=== PATIENT | female | born 1990 | race American Indian/Alaskan Native ===

== ENCOUNTER 2017-09-11 13:50 | Outpatient (CLI) | payer MEDICAID ==
[2017-09-11 16:40] VITALS: BP 117/63
--- NOTE | 2017-09-12 16:01 | Event Note ---
Date: 09/11/17 27 year old female presented to L&D triage to rule out labor at 39 weeks , 5 days gestation. Patient denies leaking of fluid or vaginal bleeding; she reports active movement. FHR tracing reactive. No cervical change. Patient was found to not be in labor. Maternal vital signs stable. Patient was discharged home with labor precautions and advice to follow up at [facility] on Wednesday.
== END 2017-09-11 17:10 | disposition home or self-care (01) ==
LOC: TRG 13:50
PROVIDERS: ATTEND Obstetrics & Gynecology
DX: O47.1 False labor at or after 37 completed weeks of gestation (principal); Z3A.39 39 weeks gestation of pregnancy
CPT/HCPCS: 59025

== ENCOUNTER 2018-12-24 10:03 | Observation (INO) | payer MEDICAID ==
[2018-12-24] MEDS ORDERED: LACTATED RINGERS 500 ML IV ONE (10:46)
[2018-12-24] MEDS ORDERED: cefTRIAXone/NS 1 GM/50 ML 1 GM/50 ML BAG IV ONE (10:47)
[2018-12-24] MEDS ORDERED: BETAMET ACET/BETAMET NA PH 6 MG/ML INJ 5 ML MDV IM ONE (10:47)
[2018-12-24] MEDS ORDERED: MAGNESIUM SULFATE 4 GM/100 ML BAG IV ONE (12:09)
[2018-12-24] MEDS ORDERED: TERBUTALINE 1 MG/1 ML INJ SUB-Q ONE (12:09)
[2018-12-24] MEDS: LACTATED RINGERS 1,000 ML IV SCH ×2 (12:32→19:21)
[2018-12-24] MEDS: MAGNESIUM SULFATE 40GM/1000ML 40 GM/1,000 ML BAG IV SCH (13:52)
[2018-12-24] MEDS ORDERED: DOCUSATE SODIUM 100 MG CAP PO PRN (14:42)
--- NOTE | 2018-12-24 14:42 | History and Physical Report ---
History of Present Illness Date of examination: 12/24/18 Date of admission: 12/24/18 12:42 Chief complaint: SIUP at 34 weeks with contractions. Previous C/section. History of present illness: Patient is a 28 year old , LMP 04/30/18, EDC 02/04/19 at 34 weeks gestation who was sent from the office for contractions. She denies any fluid leakage or bleeding. She reports good movement. Cervix is 1-2 cm/50%/-3. Past History Past Surgical History: section PIE BAKER History: herpes Family/Genetic History: none Social history: no significant social history - Obstetrical History Expected Date of Delivery: 02/04/19 Actual Gestation: 34 Week(s) 0 Day(s) : 5 Para: 4 Number of Living Children: 3 Medications and Allergies Allergies Allergy/AdvReac Type Severity Reaction Status Date / Time No Known Allergies Allergy Verified 12/24/18 10:44 Home Medications Medication Instructions Recorded Confirmed Last Taken Type Vit 75/Iron/Folic/Om3 1 tab PO DAILY 07/23/15 09/13/17 09/06/17 History [Daily Combo Pack] Active Meds: Active Medications Lactated Ringer's (Lactated Ringers) 1,000 mls @ 75 mls/hr IV DIRECT PRANEETH Last Admin: 12/24/18 12:32 Dose: 75 mls/hr Documented by: Magnesium Sulfate (Magnesium Sulfate 40gm/1000ml) 40 gm in 1,000 mls @ 50 mls/hr IV DIRECT PRANEETH Last Admin: 12/24/18 13:52 Dose: 2 gm/hr, 50 mls/hr Documented by: Magnesium Sulfate (Magnesium Sulfate 4gm/100ml) 4 gm in 100 mls @ 25 mls/hr IV ONCE ONE Stop: 12/24/18 16:08 Last Admin: 12/24/18 12:48 Dose: 200 mls/hr Documented by: - Vital Signs Vital signs: Vital Signs Pulse BP 88 104/61 12/24/18 12:33 12/24/18 12:33 Temp Pulse Resp BP Pulse Ox 98.2 F 94 H 18 123/68 12/24/18 14:17 12/24/18 14:41 12/24/18 14:17 12/24/18 14:41 - Physical Exam Cardiovascular: Normal S1, Normal S2 Lungs: Positive: Clear to auscultation Vulva: both: normal Adnexa: both: normal Deep Tendon Reflex Grade: Normal +2 - Obstetrical FHR: category 1 Uterine Contraction Monitor Mode: External Cervical Dilatation: 1 Cervical Effacement Percentage: 50 station: -3 Uterine Contraction Pattern: Irregular Uterine Contraction Intensity: Moderate Results All other labs normal. Assessment and Plan - Patient Problems (1) 34 weeks gestation of Current Visit: Yes Status: Acute (2) labor Current Visit: Yes Status: Acute (3) labor Current Visit: No Status: Acute Plan to address problem: Admit to antepartum. IV hydration. Celestone for FLM. Magnesium sulfate. IV ampicillin for GBS prophylaxis. Sonogram for EFW and BPP. MFM consult. (4) Previous section Current Visit: Yes Status: Acute (5) Sickle cell trait Current Visit: Yes Status: Acute
[2018-12-24] MEDS ORDERED: LACTATED RINGERS 1,000 ML IV SCH (15:00)
[2018-12-24 15:16] LABS: Bilirubin,Urine NEG (Negative); Blood,Urine NEG (Negative); Color,Urine Colorless (Yellow); Protein,Urine <15 mg/dL mg/dL (Negative); Urobilinogen,Urine < 2.0 mg/dL (<2.0); WBC,Urine < 1.0 /HPF (0.0-6.0)
[2018-12-24 15:34] LABS: RBC,Urine < 1.0 /HPF (0.0-6.0)
--- NOTE | 2018-12-24 16:12 | Ultrasound Report ---
ULTRASOUND BIOPHYSICAL PROFILE AND LIMITED OB ULTRASOUND INDICATION / CLINICAL INFORMATION: BPP. labor. COMPARISON: None available. FINDINGS: BREATHING MOVEMENT = 2 GROSS BODY MOVEMENT = 2 TONE = 2 QUALITATIVE AMNIOTIC FLUID VOLUME = 2 TOTAL BIOPHYSICAL SCORE = 10/06 AMNIOTIC FLUID INDEX (cm) = 11.2 PRESENTATION: Cephalic. HEART RATE (beats per minute): 172 There is a single intrauterine with an estimated sonographic gestational age of 34 weeks an d an EDC of 02/04/2019. There is good correlation with clinical dates. The placenta is located posteri maryjane, is grade 1 and is free of the os. There is no evidence of abruption or other significant abnorm ality.. IMPRESSION: biophysical profile = 10/06 Signer Name: Musa Dsouza MD Signed: 12/24/2018 4:07 PM Workstation Name: [id number]
[2018-12-24] MEDS: ACETAMINOPHEN 325 MG TAB PO PRN ×2 (16:23→20:13)
[2018-12-24] MEDS: AMPICILLIN/NS 1 GM/50 ML 1 GM/50 ML BAG IV SCH ×2 (20:00→22:00)
[2018-12-24] MEDS ORDERED: ZOLPIDEM 5 MG TAB PO PRN (22:47)
[2018-12-25] MEDS: ACETAMINOPHEN 325 MG TAB PO PRN (02:35)
[2018-12-25] MEDS: AMPICILLIN/NS 1 GM/50 ML 1 GM/50 ML BAG IV SCH ×2 (02:36→06:30)
[2018-12-25] MEDS: LACTATED RINGERS 1,000 ML IV SCH (07:24)
[2018-12-25] MEDS ORDERED: PRENATAL VIT27-FE FUMARATE-FOLIC ACID VIT TAB PO SCH (10:00)
[2018-12-25] MEDS: MAGNESIUM SULFATE 40GM/1000ML 40 GM/1,000 ML BAG IV SCH (10:14)
[2018-12-25] MEDS ORDERED: BETAMET ACET/BETAMET NA PH 6 MG/ML INJ 5 ML MDV IM ONE (10:45)
[2018-12-25 14:43] VITALS: BP 123/64
--- NOTE | 2018-12-25 15:48 | Progress Note ---
Assessment and Plan - Patient Problems (1) 34 weeks gestation of Current Visit: Yes Status: Acute (2) labor Current Visit: No Status: Acute Plan to address problem: Celestone for FLM completed. Magnesium sulfate discontinued. IV ampicillin for GBS prophylaxis. Sonogram done. Patient desires to go home. Will doischarge home with labr precautions. She will follow up in the office this week. (3) Previous section Current Visit: Yes Status: Acute (4) Sickle cell trait Current Visit: Yes Status: Acute Subjective - Subjective Date of service: 12/25/18 Principal diagnosis: SIUP at 34 weeks with pretrm labor Interval history: Patient is a 28 year old , LMP 04/30/18, EDC 02/04/19 at 34 weeks and 1 day gestation who was admitted yesterday for for contractions. She was 1 cm dilated on admission. She as treated with magnesium sulfate, celestone fot FLM, IV ampicillin. Her contractions stopped. She did not make any further cervical changes. This AM, she denies any complaint. Objective - Vital Signs Vital Signs: Vital Signs - 12hr 12/25/18 12/25/18 12/25/18 03:45 03:50 03:55 Temperature Pulse Rate 95 H 89 89 Respiratory Rate Blood Pressure Blood Pressure [Left] O2 Sat by Pulse 97 96 96 Oximetry 12/25/18 12/25/18 12/25/18 04:00 04:05 04:10 Temperature 98 F Pulse Rate 91 H 90 90 Respiratory 18 Rate Blood Pressure Blood Pressure 129/63 [Left] O2 Sat by Pulse 98 97 96 Oximetry 12/25/18 12/25/18 12/25/18 04:11 04:15 04:20 Temperature Pulse Rate 88 91 H 108 H Respiratory Rate Blood Pressure 119/54 Blood Pressure [Left] O2 Sat by Pulse 97 96 Oximetry 12/25/18 12/25/18 12/25/18 04:24 04:25 04:29 Temperature Pulse Rate 104 H 92 H 88 Respiratory Rate Blood Pressure Blood Pressure [Left] O2 Sat by Pulse 93 94 94 Oximetry 12/25/18 12/25/18 12/25/18 04:30 04:35 04:37 Temperature Pulse Rate 91 H 89 89 Respiratory Rate Blood Pressure Blood Pressure [Left] O2 Sat by Pulse 92 96 94 Oximetry 10/12/25/18 12/25/18 04:41 05:13 05:25 Temperature Pulse Rate 91 H 93 H 89 Respiratory Rate Blood Pressure 129/63 132/58 Blood Pressure [Left] O2 Sat by Pulse 97 Oximetry 12/25/18 12/25/18 12/25/18 05:30 05:35 05:40 Temperature Pulse Rate 93 H 90 94 H Respiratory Rate Blood Pressure Blood Pressure [Left] O2 Sat by Pulse 95 96 96 Oximetry 12/25/18 12/25/18 12/25/18 05:45 05:50 05:55 Temperature Pulse Rate 89 96 H 94 H Respiratory Rate Blood Pressure Blood Pressure [Left] O2 Sat by Pulse 96 96 94 Oximetry 12/25/18 12/25/18 12/25/18 06:00 06:01 06:05 Temperature Pulse Rate 95 H 91 H 94 H Respiratory Rate Blood Pressure Blood Pressure [Left] O2 Sat by Pulse 94 94 93 Oximetry 12/25/18 12/25/18 12/25/18 06:08 06:10 06:14 Temperature Pulse Rate 99 H 95 H 91 H Respiratory Rate Blood Pressure Blood Pressure [Left] O2 Sat by Pulse 94 94 94 Oximetry 12/25/18 12/25/18 12/25/18 06:15 06:20 06:25 Temperature Pulse Rate 94 H 107 H 90 Respiratory Rate Blood Pressure Blood Pressure [Left] O2 Sat by Pulse 93 95 97 Oximetry 12/25/18 12/25/18 12/25/18 06:30 06:35 06:40 Temperature Pulse Rate 97 H 87 88 Respiratory Rate Blood Pressure Blood Pressure [Left] O2 Sat by Pulse 96 94 95 Oximetry 12/25/18 12/25/18 12/25/18 06:43 06:45 06:50 Temperature Pulse Rate 92 H 85 87 Respiratory Rate Blood Pressure Blood Pressure [Left] O2 Sat by Pulse 94 95 95 Oximetry 12/25/18 12/25/18 12/25/18 06:55 07:00 07:05 Temperature Pulse Rate 86 87 88 Respiratory Rate Blood Pressure Blood Pressure [Left] O2 Sat by Pulse 95 95 95 Oximetry 12/25/18 12/25/18 12/25/18 07:10 07:11 07:15 Temperature Pulse Rate 90 87 86 Respiratory Rate Blood Pressure Blood Pressure [Left] O2 Sat by Pulse 95 94 95 Oximetry 10/12/25/18 12/25/18 07:18 07:20 07:25 Temperature Pulse Rate 87 89 83 Respiratory Rate Blood Pressure Blood Pressure [Left] O2 Sat by Pulse 94 96 96 Oximetry 12/25/18 12/25/18 12/25/18 07:30 07:35 07:40 Temperature Pulse Rate 85 87 90 Respiratory Rate Blood Pressure Blood Pressure [Left] O2 Sat by Pulse 96 97 96 Oximetry 12/25/18 12/25/18 12/25/18 07:45 07:50 07:55 Temperature Pulse Rate 86 83 90 Respiratory Rate Blood Pressure Blood Pressure [Left] O2 Sat by Pulse 96 97 96 Oximetry 12/25/18 12/25/18 12/25/18 08:00 08:05 08:10 Temperature Pulse Rate 86 80 82 Respiratory Rate Blood Pressure Blood Pressure [Left] O2 Sat by Pulse 96 99 99 Oximetry 12/25/18 12/25/18 12/25/18 08:15 08:20 08:25 Temperature Pulse Rate 82 83 83 Respiratory Rate Blood Pressure Blood Pressure [Left] O2 Sat by Pulse 97 97 98 Oximetry 12/25/18 12/25/18 12/25/18 08:30 08:35 08:40 Temperature Pulse Rate 85 84 93 H Respiratory Rate Blood Pressure Blood Pressure [Left] O2 Sat by Pulse 97 97 98 Oximetry 12/25/18 12/25/18 12/25/18 08:43 08:45 08:50 Temperature Pulse Rate 100 H 94 H 86 Respiratory Rate Blood Pressure Blood Pressure [Left] O2 Sat by Pulse 93 97 98 Oximetry 12/25/18 12/25/18 12/25/18 08:55 09:00 09:05 Temperature Pulse Rate 84 90 87 Respiratory Rate Blood Pressure Blood Pressure [Left] O2 Sat by Pulse 98 96 97 Oximetry 12/25/18 12/25/18 12/25/18 09:10 09:15 09:20 Temperature Pulse Rate 87 85 87 Respiratory Rate Blood Pressure Blood Pressure [Left] O2 Sat by Pulse 97 97 97 Oximetry 12/25/18 12/25/18 12/25/18 09:25 09:30 09:35 Temperature Pulse Rate 84 84 85 Respiratory Rate Blood Pressure Blood Pressure [Left] O2 Sat by Pulse 96 97 96 Oximetry 12/25/18 12/25/18 12/25/18 09:40 09:41 10:14 Temperature Pulse Rate 85 67 86 Respiratory Rate Blood Pressure 101/57 Blood Pressure [Left] O2 Sat by Pulse 97 76 L 99 Oximetry 12/25/18 12/25/18 12/25/18 10:19 10:25 10:30 Temperature Pulse Rate 94 H 92 H 94 H Respiratory Rate Blood Pressure Blood Pressure [Left] O2 Sat by Pulse 98 100 100 Oximetry 12/25/18 12/25/18 12/25/18 10:31 10:32 10:35 Temperature 97.6 F Pulse Rate 91 H 97 H Respiratory Rate Blood Pressure Blood Pressure [Left] O2 Sat by Pulse 92 98 Oximetry 12/25/18 12/25/18 12/25/18 10:40 10:42 10:45 Temperature Pulse Rate 89 92 H 89 Respiratory Rate Blood Pressure 111/71 Blood Pressure [Left] O2 Sat by Pulse 98 97 Oximetry 12/25/18 12/25/18 12/25/18 10:50 10:55 11:00 Temperature Pulse Rate 100 H 92 H 90 Respiratory Rate Blood Pressure Blood Pressure [Left] O2 Sat by Pulse 97 98 97 Oximetry 12/25/18 12/25/18 12/25/18 11:42 12:42 13:42 Temperature Pulse Rate 91 H 94 H 96 H Respiratory Rate Blood Pressure 125/68 121/58 130/68 Blood Pressure [Left] O2 Sat by Pulse Oximetry 12/25/18 14:42 Temperature Pulse Rate 93 H Respiratory Rate Blood Pressure 123/64 Blood Pressure [Left] O2 Sat by Pulse Oximetry - Exam Cardiovascular: Normal S1, Normal S2 Lungs: Clear to auscultation Vulva: both: normal FHR: category 1 Uterine Contraction Monitor Mode: External Cervical Dilatation: 1 Cervical Effacement Percentage: 50 station: -3 Uterine Contraction Pattern: Absent Deep Tendon Reflex Grade: Normal +2 - Labs Labs: Abnormal Labs 12/24/18 12/24/18 12/25/18 15:00 19:01 00:28 Magnesium 3.70 H 5.00 H Urine pH 8.0 H 12/25/18 12/25/18 05:22 11:40 Magnesium 5.20 H 5.50 H Urine pH Laboratory Results - last 24 hr 12/24/18 12/24/18 12/25/18 10:46 19:01 00:28 Magnesium 3.70 H 5.00 H Blood Type O POSITIVE Antibody Screen Negative 12/25/18 12/25/18 05:22 11:40 Magnesium 5.20 H 5.50 H Blood Type Antibody Screen - Results US- obstetric: report reviewed
--- NOTE | 2018-12-25 15:50 | Discharge Summary ---
Providers - Providers Date of Admission: 12/24/18 12:42 Date of discharge: 12/25/18 Attending physician: JUAN A SWEET MD Primary care physician: EXCELSIOR PICKER Hospitalization Reason for admission: labor, other Procedure: other (IV fluid, magnesium sulfate, IV ampicillin, celestone for FLM.) Hospital course: Patient is a 28 year old , LMP 04/30/18, EDC 02/04/19 at 34 weeks and 1 day gestation who was admitted yesterday for for contractions. She was 1 cm dilated on admission. She as treated with magnesium sulfate, celestone fot FLM, IV ampicillin. Her contractions stopped. She did not make any further cervical changes. This AM, she denies any complaint. Condition at discharge: Stable Disposition: DC-01 TO HOME OR SELFCARE - Discharge Diagnoses (1) 34 weeks gestation of Status: Acute (2) labor Status: Acute (3) Previous section Status: Acute (4) Sickle cell trait Status: Acute Plan - Provider Discharge Summary Activity: routine Diet: routine Instructions: routine Additional instructions: [] Smoking cessation referral if applicable(refer to patient education folder for contact #) [] Refer to [facility]'s [facility] Booklet Call your doctor immediately for: * Fever > 100.5 * Heavy vaginal bleeding ( >1 pad per hour) * Severe persistent headache * Shortness of breath * Reddened, hot, painful area to leg or breast * Drainage or odor from incision. * Keep incision clean and dry at all times and follow doctor's instructions regarding bathing/showering - Follow up plan Follow up: PRIMARY CARE, [Primary Care Provider] - 7 Days
== END 2018-12-25 16:58 | disposition home or self-care (01) ==
LOC: TRG 10:03 → LD 12:42 → INTOOBSV 12:42
PROVIDERS: ADMIT Obstetrics & Gynecology; ATTEND Obstetrics & Gynecology
DX: O62.9 Abnormality of forces of labor, unspecified (principal); D57.3 Sickle-cell trait; Z3A.34 34 weeks gestation of pregnancy; Z98.891 History of uterine scar from previous surgery
CPT/HCPCS: 36415; 76816; 76819; 81001; 82731; 83735; 86850; 86900; 86901; 87086; 96365; 96366; 96367; 96368; 96372; G0378; J0290; J0696; J0702; J3105; J3475; J7120

== ENCOUNTER 2019-02-01 07:30 | Inpatient (IN) | payer MEDICAID ==
[2019-02-03] MEDS ORDERED: FAMOTIDINE 20 MG/2 ML INJ IV ONE (05:40)
[2019-02-03] MEDS ORDERED: BICITRA ORAL LIQD 30ML PO ONE (05:40)
[2019-02-03] MEDS ORDERED: METOCLOPRAMIDE 10 MG/2 ML INJ IV ONE (05:40)
[2019-02-03] MEDS ORDERED: OXYTOCIN 20 UNIT/1000ML DRIP 20 UNITS/1,000 ML BAG IV SCH ×2 (06:00→11:00)
[2019-02-03] MEDS ORDERED: LACTATED RINGERS 1,000 ML IV SCH (06:00)
[2019-02-03] MEDS ORDERED: ceFAZolin/Water 2 GM/20 ML 2 GM/20 ML SYRINGE IV NR (06:00)
[2019-02-03 07:05] LABS: Basophils % (Auto) 0.3 % (0.0-1.8); Eosinophils # (Auto) 0.1 K/mm3 (0.0-0.4); Eosinophils % (Auto) 0.5 % (0.0-4.3); Hematocrit 30.7 % (30.3-42.9); Hemoglobin 10.3 gm/dl (10.1-14.3); Lymphocytes # (Auto) 2.8 K/mm3 (1.2-5.4); Mean Corpuscular HGB Conc 34 % (30-34); Mean Corpuscular Volume 83 fl (79-97); Monocytes # (Auto) 0.7 K/mm3 (0.0-0.8); Monocytes % (Auto) 6.4 % (0.0-7.3); Platelet Count 205 K/mm3 (140-440); Red Blood Count 3.71 M/mm3 (3.65-5.03); Red Cell Distribution Width 15.4 % (13.2-15.2)
[2019-02-03] MEDS ORDERED: DEXMEDETOMIDINE 200 MCG/2 ML VIAL IV ONE (07:05)
[2019-02-03] MEDS ORDERED: HYDROmorphone 1 MG/1 ML INJ IV PRN ×2 (07:12)
[2019-02-03] MEDS ORDERED: ONDANSETRON 4 MG/2 ML INJ IV PRN ×2 (07:12→10:05)
--- NOTE | 2019-02-03 07:17 | Anesthesia Consultation ---
Anesthesia Consult and Med Hx Date of service: 02/03/19 - Airway Anesthetic Teeth Evaluation: Poor ROM Head & Neck: Adequate Mental/Hyoid Distance: Adequate Mallampati Class: Class III Intubation Access Assessment: Probably Good - Pulmonary Exam CTA: Yes - Pre-Operative Health Status Proposed Anesthetic Plan: Epidural, Spinal - Pre-Anesthesia Comment Pre-Anesthesia Comments: PMH: APPY, NO ANESTHESIA COMPLICATIONS - Pulmonary Hx Smoking: No Hx Asthma: No Hx Respiratory Symptoms: No SOB: No COPD: No Home Oxygen Therapy: No Hx Pneumonia: No Hx Sleep Apnea: No - Cardiovascular System Hx Hypertension: No Hx Coronary Artery Disease: No Hx Heart Attack/AMI: No Hx Angina: No Hx Percutaneous Transluminal Coronary Angioplasty (PTCA): No Hx Cardia Arrhythmia: No Hx Pacemaker: No Hx Internal Defibrillator: No Hx Valvular Heart Disease: No Hx Heart Murmur: No Hx Peripheral Vascular Disease: No - Central Nervous System Hx Neuromuscular Disorder: No Hx Seizures: No CVA: No Hx Back Pain: Yes (WITH OCCATIONAL NUMBNESS RIGHT LEG) Hx Psychiatric Problems: No - Gastrointestinal Hx Ulcer: No Hx Gastroesophageal Reflux Disease: No - Endocrine Hx Renal Disease: No Hx End Stage Renal Disease: No Hx Cirrhosis: No Hx Liver Disease: No Hx Insulin Dependent Diabetes: No Hx Non-Insulin Dependent Diabetes: No Hx Thyroid Disease: No Hx Hypothyroidism: No Hx Hyperthyroidism: No - Hematic Hx Anemia: No Hx Sickle Cell Disease: No (sickle cell trait) - Other Systems Hx Alcohol Use: No Hx Substance Use: No Hx Cancer: No Hx Obesity: Yes (BMI 30.3)
--- NOTE | 2019-02-03 07:18 | Anesthesia Day of Surgery ---
Anesthesia Day of Surgery - Day of Surgery Patient Examined: Yes Patient H&P Reviewed: Yes Patient is NPO: Yes Beta Blockers: No Cardiac Clearance: No Pulmonary Clearance: No Jermoy's Test: N/A
--- NOTE | 2019-02-03 07:46 | History and Physical Report ---
History of Present Illness Date of examination: 02/03/19 Date of admission: 02/03/19 05:27 History of present illness: Pt is here at 39.6 weeks for reschedule RLTCS/BTL. BTL papers signed in oct. H/o C/S x 2. Other than being a late entry to , uncomplicated preg. Past History Past Medical History: other (SCT, herpes) Past Surgical History: section (x 2) Social history: no significant social history - Obstetrical History Expected Date of Delivery: 02/04/19 Actual Gestation: 39 Week(s) 6 Day(s) : 5 Para: 4 Hx # Term Pregnancies: 3 Number of Pregnancies: 1 Medications and Allergies Allergies Allergy/AdvReac Type Severity Reaction Status Date / Time No Known Allergies Allergy Verified 12/24/18 10:44 Home Medications Medication Instructions Recorded Confirmed Last Taken Type Vit 75/Iron/Folic/Om3 1 tab PO DAILY 07/23/15 02/03/19 1 Day Ago History [Daily Combo Pack] ~02/02/19 Active Meds: Active Medications Hydromorphone HCl (Dilaudid) 0.5 mg IV Q5M PRN PRN Reason: BREAK Stop: 02/03/19 22:00 Hydromorphone HCl (Dilaudid) 0.5 mg IV Q4H PRN PRN Reason: breakthrough pain > 7/10 Oxytocin/Sodium Chloride (Pitocin/Ns 20 Unit/1000ml Drip) 20 units in 1,000 mls @ 0 mls/hr IV TITR PRANEETH Lactated Ringer's (Lactated Ringers) 1,000 mls @ 2,250 mls/hr IV PREOP PRANEETH Stop: 02/04/19 06:27 Last Admin: 02/03/19 07:11 Dose: 2,250 mls/hr Documented by: Ondansetron HCl (Zofran) 4 mg IV Q8H PRN PRN Reason: Nausea And Vomiting Sodium Chloride (Sodium Chloride Flush Syringe 10 Ml) 10 ml IV PRN NR Stop: 02/13/19 07:59 Review of Systems All systems: negative (except HPI) - Vital Signs Vital signs: Vital Signs Temp Pulse Resp BP 98.4 F 82 18 127/70 02/03/19 06:18 02/03/19 06:18 02/03/19 06:18 02/03/19 06:18 Temp Pulse Resp BP Pulse Ox 98.4 F 82 18 127/70 02/03/19 06:18 02/03/19 06:18 02/03/19 06:18 02/03/19 06:18 - Physical Exam Abdomen: Positive: normal appearance, soft. Negative: tenderness Results Result Diagrams: 02/03/19 05:57 Abnormal lab results 02/03/19 Range/Units 05:57 WBC 11.5 H (4.5-11.0) K/mm3 RDW 15.4 H (13.2-15.2) % Seg Neutrophils # 7.9 H (1.8-7.7) K/mm3 All other labs normal. Assessment and Plan - Patient Problems (1) Previous section Current Visit: No Status: Acute Plan to address problem: PT for RLTCS/BTL. PT fully consented. Risks, benefits and alternatives d/w pt. All questions answered. PT aware of @ 04/999 risk of failure.
[2019-02-03] MEDS ORDERED: PHENYLEPHRINE 10 MG/1 ML INJ SDV ONE (08:18)
[2019-02-03] MEDS ORDERED: SODIUM CHLORIDE 0.9% IRR 1,500 ML BOTTLE IR ONE (08:30)
[2019-02-03] MEDS ORDERED: WATER FOR IRRIG STERILE 1,500 ML BOTTLE IR ONE (08:30)
[2019-02-03] MEDS ORDERED: OXYTOCIN 10 UNIT/1 ML INJ ONE (08:39)
[2019-02-03] MEDS ORDERED: LIDOCAINE MPF (2%) 20 MG/1 ML VIAL 5 ML ONE ×2 (09:32→09:57)
[2019-02-03] MEDS ORDERED: WITCH HAZEL/ GLYCERIN PAD TP PRN (10:05)
[2019-02-03] MEDS ORDERED: NALOXONE 0.4 MG/1 ML INJ IV PRN ×2 (10:05→10:12)
[2019-02-03] MEDS ORDERED: HYDROCORTISONE 25 MG RECTAL SUPP PR PRN (10:05)
[2019-02-03] MEDS ORDERED: LANOLIN/ZINC/DIMETHICONE (LANSINOH) 7 GM TP PRN (10:05)
[2019-02-03] MEDS ORDERED: SENNOSIDES 8.6 MG TAB PO PRN (10:05)
[2019-02-03] MEDS ORDERED: MAGNESIUM HYDROXIDE (MOM) ORAL LIQD UDC PO PRN (10:05)
--- NOTE | 2019-02-03 10:07 | Post Anesthesia Evaluation ---
- Post Anesthesia Evaluation Patient Participated: Yes Airway Patent: Yes Stable Respiratory Function: Yes Nausea/Vomiting: No Temp > 96.8F: Yes Pain Manageable: Yes Adequeate Hydration: Yes Anesthesia Complications: No Block Receding Appropriately: Yes Patient on Ventilator: No
[2019-02-03] MEDS ORDERED: diphenhydrAMINE 50 MG/ML VIAL IV PRN (10:12)
--- NOTE | 2019-02-03 10:30 | Procedure Note ---
OB Delivery Note - Section Preop diagnosis: repeat , desires sterilization Postop diagnosis: same section procedure: repeat low transverse, bilateral tubal ligation Disposition: PACU Complications: other (uterine oozing and hematoma- was stabilized) Narrative: This patient is a 28-year-old G5 P 3013 at 39 and 67 weeks today with a history of 2 prior C-sections. Patient is here today for repeat low-transverse C- section as well as bilateral tubal ligation. Procedure patient was taken the operating room and prepped and draped in the usual fashion. A Pfannenstiel skin incision was then made over her prior incision. Incision carried down to the underlying fascia. Fascia was incised and the incision was extended bilaterally. The rectus muscle was then dissected off the fascia. The peritoneum was then carefully entered and then incision was extended superiorly and inferiorly with good visualization of the bladder. Bladder blade was then placed. The uterine incision was then made and extended bilaterally. Clear fluid was noted and the baby was delivered in the usual vertex fashion without any difficulties. Baby was right occiput transverse. Cord was clamped and cut and handed off to the awaiting team. The uterus was then exteriorized and cleared of all clots and debris. The uterine incision was closed with 0 Vicryl in a running locked fashion followed by second imbricating layer of 0 Vicryl. The patient developed a uterine hematoma on the right side of the incision which did require multiple [id number] stitches but the bleeding was eventually stabilized and controlled. This left approximately a 7 cm hematoma on that right side of the incision. But no active bleeding was noted and the hematoma did not change in size. This hematoma was observed for approximately 20-30 minutes with no change in size and no active bleeding. During that observation time attention was turned to the bilateral tubes which were ligated first in the usual fashion. But the mesentery tore a little on each side and so each segment had to be tied individually with 0 chromic to control the oozing and to ligate each side separately. Good hemostasis noted on both sides after this. The segments of both tubes were sent to pathology. Attention was then turned to a small serosal tear near the anterior uterine fundus which was about 2 cm in length. There oozing from this as well which required multiple 2-0 Vicryl sutures but eventually good hemostasis noted. Hemablast powder was applied to the uterine incision, to the serosal tear and to the areas of dissection at the bilateral tubes. Good hemostasis was noted throughout and so the uterus tubes and ovaries were returned the abdominal cavity. The ovaries were within normal limits. The sites of the tubal ligations and the serosal tear were reevaluated once the uterus was back in the abdominal cavity and good hemostasis was still noted. Pelvis was well irrigated. Good hemostasis noted at the uterine incision and again the hematoma was still stable. Interceed was placed over the uterine incision and over the lower uterine segment in the midline. Attention was now t urned to the rectus fascia which was reapproximated with 0 Vicryl in a running fashion. Good hemostasis noted the subcutaneous tissue. The subcutaneous tissues tissue was thin so it was not reapproximated. Attention was then turned to the skin which is reapproximated with 4-0 Vicryl in a subcuticular fashion followed by Dermabond. Patient had clear urine throughout the case. Mother and baby are stable. Mother taken to recovery room in stable condition. Findings - Patient had a viable female with Apgars of 9 and 9. Estimated blood loss 1000 mL
[2019-02-03] MEDS ORDERED: MORPHINE/NS 30 MG-30 ML PCA INJ IV SCH (11:00)
[2019-02-03 23:14] LABS: Hematocrit 27.9 % (30.3-42.9); Hemoglobin 9.6 gm/dl (10.1-14.3)
[2019-02-04] MEDS ORDERED: IBUPROFEN 800 MG TAB PO PRN ×2 (02:50→10:05)
[2019-02-04] MEDS: HYDROcodone/ACETAMINOPHEN 5-325 MG TAB PO PRN ×4 (03:10→22:07)
[2019-02-04 07:01] LABS: Hematocrit 28.9 % (30.3-42.9); Hemoglobin 9.5 gm/dl (10.1-14.3); Mean Corpuscular HGB Conc 33 % (30-34); Mean Corpuscular Volume 84 fl (79-97); Platelet Count 230 K/mm3 (140-440); Red Blood Count 3.44 M/mm3 (3.65-5.03); Red Cell Distribution Width 15.4 % (13.2-15.2)
--- NOTE | 2019-02-04 07:16 | Progress Note ---
Assessment and Plan - Patient Problems (1) Previous section Current Visit: No Status: Acute (2) delivery delivered Current Visit: Yes Status: Acute Plan to address problem: stable POD 1. Cont pp care. Subjective - Subjective Date of service: 02/04/19 Principal diagnosis: POD 1 Interval history: Pt is here at 39.6 weeks for reschedule RLTCS/BTL. BTL papers signed in oct. H/o C/S x 2. Other than being a late entry to , uncomplicated preg. Patient reports: new complaints (Pt doing well. Positive OOB amb, postive clears, no flatus. No F/C/N/V/CP/SOB.) Objective - Vital Signs Vital Signs: Vital Signs - 12hr 02/03/19 02/03/19 02/03/19 19:30 20:16 21:00 Temperature 94.7 F L Pulse Rate 191 H 80 Respiratory 20 20 Rate Blood Pressure 107/50 O2 Sat by Pulse 100 Oximetry 02/03/19 02/03/19 02/04/19 21:30 22:45 00:02 Temperature 98.7 F Pulse Rate 89 Respiratory 20 20 18 Rate Blood Pressure 135/78 O2 Sat by Pulse 98 Oximetry 02/04/19 02/04/19 02/04/19 01:24 01:25 03:10 Temperature Pulse Rate Respiratory 20 18 18 Rate Blood Pressure O2 Sat by Pulse Oximetry 02/04/19 03:57 Temperature 98.6 F Pulse Rate 91 H Respiratory 16 Rate Blood Pressure 118/78 O2 Sat by Pulse 99 Oximetry - Exam Abdomen: Present: normal appearance, soft (appriately tender. Wound dressing C/D/I) - Labs Labs: Abnormal Labs 02/03/19 02/03/19 02/04/19 05:57 22:40 05:57 WBC 11.5 H 14.7 H RBC 3.44 L Hgb 9.6 L 9.5 L Hct 27.9 L 28.9 L RDW 15.4 H 15.4 H Seg Neutrophils # 7.9 H Laboratory Results - last 24 hr 02/03/19 02/03/19 02/04/19 05:57 22:40 05:57 WBC 14.7 H RBC 3.44 L Hgb 9.6 L 9.5 L Hct 27.9 L 28.9 L MCV 84 MCH 28 MCHC 33 RDW 15.4 H Plt Count 230 Blood Type O POSITIVE Antibody Screen Negative
[2019-02-04] MEDS ORDERED: HYDROcodone/ACETAMINOPHEN 5-325 MG TAB PO PRN (10:15)
[2019-02-04] MEDS: SIMETHICONE 80 MG CHEW TAB PO PRN ×2 (15:29→22:08)
[2019-02-05] MEDS: HYDROcodone/ACETAMINOPHEN 5-325 MG TAB PO PRN ×3 (06:11→19:08)
--- NOTE | 2019-02-05 11:57 | Progress Note ---
Assessment and Plan A: Postop day 2 S/P LTCS. Anemia. P: Encouraged patient to ambulate and drink warm liquids. Stool softener ordered. Iron supplementation. Subjective - Subjective Date of service: 02/05/19 Principal diagnosis: POD 2 Interval history: Postop day 2. Doing well. Patient reports a small amount of lochia. Patient states she has not passed gas yet. Drinking warm liquids to try to pass gas. States she plans to ambulate more today. Patient is ambulating well and voiding without difficulty. Patient denies headache, dizziness, cough, shortness of breath, chest pain, leg pain, abdominal pain, or heavy bleeding. Patient reports: appetite normal, voiding normally, pain well controlled, ambulating normally, no dizzy ambulation, no flatus, no nauseated [place]: doing well, bottle feeding Objective - Vital Signs Latest vital signs: Vital Signs Temp Pulse Resp BP BP Pulse Ox 02/05/19 08:30 97.8 F 77 18 119/74 02/05/19 00:00 98.7 F 69 18 112/68 02/04/19 16:01 98.3 F 80 20 122/72 97 02/04/19 15:20 20 Intake and Output 02/04/19 02/05/19 02/05/19 23:59 07:59 15:59 Intake Total 540 120 Balance 540 120 Intake: Oral 240 120 Intake, Free Water 300 Other: Total, Intake Amount 240 120 # Voids Void 1 1 1 - Exam Cardiovascular: Present: Regular rate, Normal S1, Normal S2, No murmurs Lungs: Present: Clear to auscultation Abdomen: Present: normal appearance, soft, normal bowel sounds. Absent: distention, tenderness, guarding, rigidity Uterus: Present: normal, firm, fundal height below umbilicus. Absent: bogginess, tenderness Extremities: Present: normal. Absent: tenderness, edema Incision: Present: normal, dry, intact
[2019-02-05] MEDS: FERROUS SULFATE 325 MG TAB PO SCH (13:13)
[2019-02-05] MEDS: DOCUSATE SODIUM 100 MG CAP PO SCH (13:14)
[2019-02-06] MEDS: DOCUSATE SODIUM 100 MG CAP PO SCH ×2 (01:56→08:35)
[2019-02-06] MEDS: HYDROcodone/ACETAMINOPHEN 5-325 MG TAB PO PRN ×2 (01:57→08:34)
[2019-02-06] MEDS ORDERED: TETANUS,DIPH,PERTUSS(ACELL) VACCINE 0.5 ML SYRINGE IM ONE (06:00)
[2019-02-06] MEDS: FERROUS SULFATE 325 MG TAB PO SCH (08:33)
--- NOTE | 2019-02-06 09:37 | Discharge Summary ---
Providers - Providers Date of Admission: 02/03/19 05:27 Date of discharge: 02/06/19 Attending physician: MARCELO GALO MD Primary care physician: MARCELO GALO MD Hospitalization Reason for admission: IUP at term Delivery: Procedure: bilateral tubal ligation, repeat low transverse Episiotomy: none Laceration: none Incision: dry, intact (steri-strips with no drainage or bleeding noted) Other procedures: tubal ligation complications: none Discharge diagnosis: other (S/P repeat C/S with BTL; Anemia) [place] baby: male Hospital course: See admission H & P; OB operative report and PP progress notes Condition at discharge: Stable Disposition: DC-01 TO HOME OR SELFCARE - Discharge Diagnoses (1) S/P repeat low transverse Status: Acute (2) Anemia Status: Acute Qualifiers: Anemia type: iron deficiency (3) tubal ligation planned Status: Acute Plan - Discharge Medications Prescriptions: Ferrous Sulfate [Feosol 325 MG tab] 325 mg PO QDAY 30 Days #30 tablet - Provider Discharge Summary Activity: routine, no sex for 6 weeks, no heavy lifting 4 weeks, no strenuous exercise Diet: other (Iron rich diet) Instructions: routine Additional instructions: [] Smoking cessation referral if applicable(refer to patient education folder for contact #) [] Refer to [facility] Booklet Call your doctor immediately for: * Fever > 100.5 * Heavy vaginal bleeding ( >1 pad per hour) * Severe persistent headache * Shortness of breath * Reddened, hot, painful area to leg or breast * Drainage or odor from incision. * Keep incision clean and dry at all times and follow doctor's instructions regarding bathing/showering * Continue daily oral supplementation as directed with OJ - Follow up plan Follow up: MARCELO GALO MD [Primary Care Provider] - 7 Days
[2019-02-06 12:21] VITALS: BP 113/65
== END 2019-02-06 14:00 | disposition home or self-care (01) | DRG 765 ==
LOC: APU 02-03 05:27 → OB 02-03 12:36
PROVIDERS: ADMIT Obstetrics & Gynecology; ATTEND Obstetrics & Gynecology
PROC: 10D00Z1 Extraction of Products of Conception, Low, Open Approach (ICD-10-PCS; 2019-02-03)
PROC: 0UQ90ZZ Repair Uterus, Open Approach (ICD-10-PCS; 2019-02-03)
PROC: 0UL70ZZ Occlusion of Bilateral Fallopian Tubes, Open Approach (ICD-10-PCS; 2019-02-03)
PROC: 3E0234Z Introduction of Serum, Toxoid and Vaccine into Muscle, Percutaneous Approach (ICD-10-PCS; principal; 2019-02-06)
DX: O99.214 Obesity complicating childbirth (principal); N99.61 Intraoperative hemorrhage and hematoma of a genitourinary system organ or structure complicating a genitourinary system procedure; O34.211 Maternal care for low transverse scar from previous cesarean delivery; E66.9 Obesity, unspecified; O99.03 Anemia complicating the puerperium; D50.9 Iron deficiency anemia, unspecified; O75.89 Other specified complications of labor and delivery; M54.9 Dorsalgia, unspecified; Y65.8 Other specified misadventures during surgical and medical care; Z37.0 Single live birth; Z3A.39 39 weeks gestation of pregnancy; Z23 Encounter for immunization; Z30.2 Encounter for sterilization
CPT/HCPCS: 36415; 85014; 85018; 85025; 85027; 86850; 86900; 86901; 88302; 90471; G0378; C1765; J0690; J1170; J2270; J2370; J2590; J2765; J3490; J7120